=== PATIENT | male | born 1955 | race Caucasian/White ===

== ENCOUNTER 2024-05-10 08:05 | Inpatient (IN) | payer OTHER ==
[2024-05-09 16:20] LABS: BASOPHILS # (AUTO) 0.1 X10'3 (0-0.2); BASOPHILS % (AUTO) 1.2 % (0-1); EOSINOPHILS # (AUTO) 0.7 X10'3 (0-0.9); LYMPHOCYTES # (AUTO) 1.2 X10'3 (1.1-4.8); LYMPHOCYTES % (AUTO) 18.5 % (21-51); MEAN PLATELET VOLUME 7.7 FL (7.4-10.4); MONOCYTES # (AUTO) 0.5 X10'3 (0-0.9); MONOCYTES % (AUTO) 7.2 % (2-12); NEUTROPHILS # (AUTO) 4.3 X10'3 (1.8-7.7); NEUTROPHILS % (AUTO) 63.1 % (42-75); PRE OP HEMATOCRIT 40.2 % (42.0-52.0); PRE OP HEMOGLOBIN 13.7 g/dL (14.0-17.9); PRE OP PLATELET COUNT 159 X10'3 (140-440); PRE OP WHITE BLOOD COUNT 6.8 10'3 (4.8-10.8); RED BLOOD COUNT 4.14 X10'6 (4.70-6.10); RED CELL DISTRIBUTION WIDTH 14.9 % (11.5-14.5)
[2024-05-09 16:22] LABS: BILIRUBIN,URINE NEGATIVE (Neg); CLARITY,URINE CLEAR (Clear); COLOR,URINE YELLOW (Yellow); GLUCOSE, URINE NEGATIVE (Neg); KETONES,URINE NEGATIVE (Neg); LEUKOCYTE ESTERASE ,URINE NEGATIVE (Neg); NITRITES, URINE NEGATIVE (Neg); OCCULT BLOOD,URINE NEGATIVE (Neg); PROTEIN,URINE NEGATIVE (Neg); UROBILINOGEN,URINE 0.2 E.U/dL (0.2-1.0)
[2024-05-09 16:23] LABS: UA COLLECTION TYPE CLN CATCH MIDSTREAM
[2024-05-09 16:33] LABS: PRE OP PROTIME 15.2 SECONDS (9.0-12.0)
[2024-05-09 16:34] LABS: ALBUMIN 3.3 G/DL (3.4-5.0); ALKALINE PHOSPHATASE 94 IU/L (46-116); BLOOD UREA NITROGEN 16 MG/DL (7-18); BUN/CREATININE RATIO 15.8 (10.0-20.0); CALCIUM 8.7 MG/DL (8.5-10.1); CHLORIDE 105 MMOL/L (99-107); CREATININE 1.01 MG/DL (0.60-1.10); HEMOGLOBIN A1C 5.7 % (4.5-6.2); PRE OP ALT 54 U/L (30-65); PRE OP ANION GAP 7 (8-16); PRE OP AST 20 U/L (10-37); PRE OP BILIRUB, TOTAL 0.4 MG/DL (0.0-1.0); PRE OP GLUCOSE 137 MG/DL (70-104); PRE OP SODIUM 142 MMOL/L (135-145); TOTAL CARBON DIOXIDE 30.5 MMOL/L (24-32); TOTAL PROTEIN 6.5 G/DL (6.4-8.2); eGFR 73 ML/MIN
[2024-05-09 16:39] LABS: PRE OP INR 1.5 INR
[2024-05-09 16:49] LABS: PRE OP POTASSIUM 3.2 MMOL/L (3.4-5.1)
[2024-05-10] VITALS (29 sets, daily range): BP systolic 92–131; BP diastolic 48–79; PULSE 56–82; RESP 10–19; TEMP 97.4–98.4; O2SAT 91–100
[~2024-05-10] VITALS: Ht 167.6 cm; Wt 90.7 kg
[2024-05-10] MEDS: ceFAZolin 2gm in dextrose, iso 50 ML IV ONE (05:30)
[2024-05-10] MEDS: DOCUMENT DATE & TIME OF BETA-BLOCKER PO ONE (05:30)
[~2024-05-10 08:05] MED LIST: ALLO300T8 PO; AMI200T PO; CHOL10008 PO; CYAN-116 PO; FLO0.4C; HYDR50TA4 PO; LORA10TA7 PO; MAGN400C PO; METF-900 PO; METO-384 PO; OMEG-166 PO; POTA-366 PO; PRAV10TA39 PO; RIVA20TA PO; SEMA2PEN; TEST200V33 IM
[2024-05-10] MEDS: VANCOMYCIN 1,500MG inj. 1,500 MG in normal saline 500ml IV soln 300 ML IV ONE (09:22)
[2024-05-10] MEDS: ringers solution, lacted 1,000 ML IV SCH (09:22)
[2024-05-10] MEDS: famotidine 20mg tablet PO ONE (09:22)
[2024-05-10] MEDS ORDERED: meperidine/PF 25mg/ml syringe IV PRN ×3 (10:20)
[2024-05-10] MEDS ORDERED: morphine 4 MG/ML inj SYRINge IV PRN (10:20)
[2024-05-10] MEDS ORDERED: ondansetron/PF 4mg/2ml inj IV PRN ×2 (10:20→11:50)
[2024-05-10] MEDS ORDERED: proCHLORperazine 10 MG/2 ml inj IV PRN ×2 (10:20→11:50)
[2024-05-10] MEDS ORDERED: ringers solution, lacted 1,000 ML IV SCH (10:20)
[2024-05-10] MEDS ORDERED: morphine 2 MG/ML inj. syringe IV PRN (10:20)
[2024-05-10] MEDS ORDERED: esmolol inj. 0 ML IV ONE (10:34)
[2024-05-10] MEDS ORDERED: iohexol 350MG/ML 100ml bottle IV ONE ×2 (10:42→13:33)
[2024-05-10] MEDS ORDERED: sevoflurane 250ml liquid IH ONE (10:48)
[2024-05-10] MEDS ORDERED: midazolam 1 mg/ML 2ml injection ONE ×2 (10:50→13:32)
[2024-05-10] MEDS ORDERED: fentaNYL/PF 50MCG/1 ML 2ML syringe ONE ×2 (10:50→13:32)
[2024-05-10] MEDS ORDERED: propofol inj 20 ML IV ONE (11:14)
[2024-05-10] MEDS ORDERED: heparin 1,000unit/ml 10ml vial 10 ML ONE ×2 (11:14→13:32)
[2024-05-10] MEDS ORDERED: rocuronium 10mg/ml inj IV ONE (11:15)
[2024-05-10] MEDS ORDERED: METO50TA16 PO (11:19)
[2024-05-10] MEDS ORDERED: glycopyrrolate 0.2mg/ml inj ONE (11:38)
[2024-05-10] MEDS ORDERED: neostigmine methylsulfate 1 MG/ML 10ml vial ONE (11:38)
[2024-05-10] MEDS ORDERED: ALPRAZolam 0.25mg tablet PO PRN (11:50)
[2024-05-10] MEDS ORDERED: labetalol 20mg/4ml (5mg/ml) syringe IV PRN (11:50)
[2024-05-10] MEDS ORDERED: HYDROcodone/acetaminophen 5mg/325mg tablet PO PRN (11:50)
[2024-05-10] MEDS ORDERED: potassium Cl 20 mEq SR tablet PO PRN (11:50)
[2024-05-10] MEDS ORDERED: potassium Cl 20mEq/100mL bag 100 ML IV PRN (11:50)
[2024-05-10] MEDS ORDERED: acetaminophen 325mg tablet PO PRN (11:50)
[2024-05-10] MEDS ORDERED: potassium CL 10mEq/100ml bag 100 ML IV PRN (11:50)
[2024-05-10] MEDS ORDERED: pantoprazole 40mg Tablet.DR PO PRN (11:50)
[2024-05-10] MEDS ORDERED: dextrose 50%-water 50ml dispensing syringe IV PRN ×2 (11:50)
[2024-05-10] MEDS ORDERED: hydrALAZINE 20mg/ml inj. IV PRN (11:50)
[2024-05-10] MEDS ORDERED: magnesium sulf-water 4G/100mL 100 ML IV PRN (11:50)
[2024-05-10] MEDS ORDERED: magnesium sulf-water 2g/50mL 50 ML IV PRN (11:50)
[2024-05-10] MEDS ORDERED: diphenhydrAMINE 25mg capsule PO PRN (11:50)
[2024-05-10] MEDS ORDERED: potassium Cl 40MEQ/270ML bag 250 ML IV PRN (11:50)
[2024-05-10] MEDS ORDERED: glucagon, human recombinant 1mg kit SUBCUT PRN (11:50)
[2024-05-10] MEDS ORDERED: docusate sod 100mg capsule PO PRN (11:50)
[2024-05-10] MEDS ORDERED: DEXTROSE 15 GM of carb/4 tabs (each vial/BOTTLE has 4 tablets) PO PRN (11:50)
[2024-05-10] MEDS: INSULIN LISPRO 100 UNIT/ML INSULN.PEN MULTI-DOSE SQ SCH ×2 (12:00)
[2024-05-10] MEDS ORDERED: LIDOcaine 1% 30ml preserv. free vial ONE (13:32)
[2024-05-10] MEDS ORDERED: iohexol 350 MG/ML 50ML vial IV ONE (13:32)
[2024-05-10] MEDS ORDERED: verapamil 2.5 mg/ml inj IV ONE (13:32)
[2024-05-10] MEDS ORDERED: nitroGLYCERIN 500mcg/5mL D5W 5 ML IV ONE (13:33)
[2024-05-10] MEDS: normal saline 1000ml 1,000 ML IV SCH (15:18)
[2024-05-10 15:55] LABS: ALANINE AMINOTRANSFERASE 34 U/L (12-78); ALBUMIN 2.9 G/DL (3.4-5.0); ALKALINE PHOSPHATASE 71 IU/L (46-116); ASPARTATE AMINO TRANSFERASE 24 U/L (10-37); BILIRUBIN,DIRECT 0.2 MG/DL (0-0.3); BILIRUBIN,TOTAL 0.4 MG/DL (0.1-1.0); FREE T4 (FREE THYROXINE) 1.34 NG/DL (0.73-1.40); THYROID STIMULATING HORMONE 2.72 ulU/ml (0.34-4.50); TOTAL PROTEIN 5.8 G/DL (6.4-8.2)
[2024-05-10] MEDS: ceFAZolin/D5W- 1GM premix 50 ML IV SCH (16:05)
[2024-05-10] MEDS: sod chloride 0.9% 10ml flush syringe IV SCH (16:05)
[2024-05-10 16:12] LABS: ANION GAP 6 (8-16); BLOOD UREA NITROGEN 15 MG/DL (7-18); BUN/CREATININE RATIO 15.5 (10.0-20.0); CALCIUM 8.3 MG/DL (8.5-10.1); CHLORIDE 109 MMOL/L (99-107); CREATININE 0.97 MG/DL (0.60-1.10); GLUCOSE 91 MG/DL (70-104); POTASSIUM 3.3 MMOL/L (3.5-5.1); SODIUM 144 MMOL/L (135-145); TOTAL CARBON DIOXIDE 28.9 MMOL/L (24-32); eCRCL 66 ML/MIN; eGFR 77 ML/MIN
[2024-05-10] MEDS: potassium Cl 40MEQ/1/2NS 520ml 520 ML IV PRN (17:17)
[2024-05-10] MEDS: VANCOMYCIN 1GM 200ML H20 (PEG) 200 ML IV SCH (20:43)
[2024-05-10] MEDS: metoprolol tartrate 50mg tablet PO SCH (20:43)
[2024-05-10] MEDS: DEXTROSE 15 GM of carb/4 tabs (each vial/BOTTLE has 4 tablets) PO PRN (20:54)
[2024-05-11 02:00] VITALS: BP 115/68; PULSE 73; RESP 16; TEMP 98; O2SAT 98
[2024-05-11 06:53] VITALS: BP 111/70; PULSE 69; RESP 14; TEMP 97.6; O2SAT 93
[2024-05-11 07:37] LABS: BASOPHILS % (AUTO) 0.6 % (0-1); EOSINOPHILS # (AUTO) 0.4 X10'3 (0-0.9); EOSINOPHILS % (AUTO) 4.9 % (0-6); HEMATOCRIT 36.7 % (42.0-52.0); HEMOGLOBIN 12.3 g/dl (14.0-17.9); LYMPHOCYTES # (AUTO) 0.9 X10'3 (1.1-4.8); LYMPHOCYTES % (AUTO) 10.7 % (21-51); MEAN CORPUSCULAR HEMOGLOBIN 32.4 PG (27.0-31.0); MEAN CORPUSCULAR HGB CONC 33.5 g/dL (33.0-36.5); MEAN CORPUSCULAR VOLUME 96.5 FL (78-98); MEAN PLATELET VOLUME 7.5 FL (7.4-10.4); MONOCYTES # (AUTO) 0.6 X10'3 (0-0.9); MONOCYTES % (AUTO) 7.4 % (2-12); NEUTROPHILS # (AUTO) 6.2 X10'3 (1.8-7.7); NEUTROPHILS % (AUTO) 76.4 % (42-75); PLATELET COUNT 131 X10'3 (140-440); RED BLOOD COUNT 3.81 X10'6 (4.70-6.10); RED CELL DISTRIBUTION WIDTH 15.1 % (11.5-14.5); WHITE BLOOD COUNT 8.1 X10'3 (4.5-11.0)
[2024-05-11 07:44] LABS: INR 1.1 INR; PROTHROMBIN TIME 11.9 SECONDS (9.0-12.0)
[2024-05-11] MEDS: rivaroxaban 20mg tablet PO SCH (08:05)
[2024-05-11] MEDS: allopurinol 300 MG tablet PO SCH (08:05)
[2024-05-11] MEDS: loratadine 10mg tablet PO SCH (08:05)
[2024-05-11] MEDS: magnesium oxide 400mg tablet PO SCH (08:05)
[2024-05-11 08:06] VITALS: BP_SYST 111; PULSE 69
[2024-05-11] MEDS: OMEGA-3/DHA/EPA/FISH OIL 1 EACH CAPSULE.DR PO SCH (08:06)
[2024-05-11] MEDS: cholecalciferol (vitamin D3) 1,000 unit (25mcg) tablet PO SCH (08:06)
[2024-05-11] MEDS: amiodarone 200mg tablet PO SCH (08:06)
[2024-05-11] MEDS: HYDROchlorothiazide 25mg tablet PO SCH (08:06)
[2024-05-11 08:16] LABS: ALANINE AMINOTRANSFERASE 27 U/L (12-78); ALBUMIN 2.8 G/DL (3.4-5.0); ALBUMIN/GLOBULIN RATIO 0.9 (1.1-1.5); ALKALINE PHOSPHATASE 66 IU/L (46-116); ANION GAP 4 (8-16); ASPARTATE AMINO TRANSFERASE 18 U/L (10-37); BILIRUBIN,TOTAL 0.6 MG/DL (0.1-1.0); BLOOD UREA NITROGEN 11 MG/DL (7-18); BUN/CREATININE RATIO 10.2 (10.0-20.0); CALCIUM 8.4 MG/DL (8.5-10.1); CHLORIDE 108 MMOL/L (99-107); CREATININE 1.08 MG/DL (0.60-1.10); GLUCOSE 93 MG/DL (70-104); MAGNESIUM 1.8 MG/DL (1.5-2.4); POTASSIUM 4.2 MMOL/L (3.5-5.1); PRO BRAIN NATRIURETIC PEPTIDE 428 PG/ML (0-125); SODIUM 142 MMOL/L (135-145); TOTAL CARBON DIOXIDE 30.2 MMOL/L (24-32); TOTAL PROTEIN 5.8 G/DL (6.4-8.2); eCRCL 59 ML/MIN; eGFR 68 ML/MIN
[2024-05-11 08:30] VITALS: RESP 14; O2SAT 93
[2024-05-11] MEDS: pravastatin 10mg tablet PO SCH (08:48)
== END 2024-05-11 11:50 | disposition home or self-care (01) | DRG 274 ==
LOC: PAS IN 08:05 → PCU 3S 14:43
PROVIDERS: ADMIT Student in an Organized Health Care Education/Training Program; ATTEND Student in an Organized Health Care Education/Training Program
PROC: B24BZZ4 Ultrasonography of Heart with Aorta, Transesophageal (ICD-10-PCS; 2024-05-10)
PROC: 02L73DK Occlusion of Left Atrial Appendage with Intraluminal Device, Percutaneous Approach (ICD-10-PCS; principal; 2024-05-10 10:48)
DX: I48.91 Unspecified atrial fibrillation (principal); Z00.6 Encounter for examination for normal comparison and control in clinical research program; I10 Essential (primary) hypertension; E11.9 Type 2 diabetes mellitus without complications; E78.5 Hyperlipidemia, unspecified; Z88.6 Allergy status to analgesic agent
CPT/HCPCS: 33340; 36415; 71045; 71046; 76937; 80048; 80053; 80076; 81003; 82948; 83036; 83735; 83880; 84439; 84443; 85025; 85347; 85610; 85730; 86885; 86900; 86901; 86920; 87081; 93005; 93308; 93312; 93325; A4615; A4618; A6258; A6449; C1760; C1889; C1893; G0378; J0690; J1644; J1815; J2003; J2250; J2704; J2710; J3010; J3370; J3372; J3480; J3490; J7030; J7040; J7120; Q9967

== ENCOUNTER 2024-06-25 10:50 | Day surgery (SDC) | payer OTHER ==
[~2024-06-25] VITALS: Ht 167.6 cm; Wt 88.3 kg
[2024-06-25] VITALS (16 sets, daily range): BP systolic 101–116; BP diastolic 55–70; PULSE 69–91; RESP 11–20; TEMP 98.2; O2SAT 94–98
[~2024-06-25 10:50] MED LIST changes: -CYAN-116 PO; -METO-384 PO; +METO50TA16 PO
[2024-06-25 11:44] LABS: BASOPHILS # (AUTO) 0.1 X10'3 (0-0.2); BASOPHILS % (AUTO) 0.8 % (0-1); EOSINOPHILS # (AUTO) 0.4 X10'3 (0-0.9); EOSINOPHILS % (AUTO) 5.7 % (0-6); HEMATOCRIT 36.1 % (42.0-52.0); HEMOGLOBIN 12.3 g/dl (14.0-17.9); LYMPHOCYTES # (AUTO) 0.9 X10'3 (1.1-4.8); LYMPHOCYTES % (AUTO) 13.4 % (21-51); MEAN CORPUSCULAR HEMOGLOBIN 31.9 PG (27.0-31.0); MEAN CORPUSCULAR HGB CONC 33.9 g/dL (33.0-36.5); MEAN CORPUSCULAR VOLUME 93.9 FL (78-98); MEAN PLATELET VOLUME 7.2 FL (7.4-10.4); MONOCYTES # (AUTO) 0.6 X10'3 (0-0.9); NEUTROPHILS # (AUTO) 5.1 X10'3 (1.8-7.7); NEUTROPHILS % (AUTO) 72.1 % (42-75); PLATELET COUNT 167 X10'3 (140-440); RED BLOOD COUNT 3.85 X10'6 (4.70-6.10); RED CELL DISTRIBUTION WIDTH 13.6 % (11.5-14.5)
[2024-06-25 11:51] LABS: CHLORIDE 105 MMOL/L (99-107); GLUCOSE 88 MG/DL (70-104); POTASSIUM 3.6 MMOL/L (3.5-5.1); SODIUM 140 MMOL/L (135-145); TOTAL CARBON DIOXIDE 28.6 MMOL/L (24-32)
[2024-06-25 11:52] LABS: ALBUMIN 3.1 G/DL (3.4-5.0); ANION GAP 6 (8-16); BLOOD UREA NITROGEN 23 MG/DL (7-18); BUN/CREATININE RATIO 24.2 (10.0-20.0); CALCIUM 8.7 MG/DL (8.5-10.1); CREATININE 0.95 MG/DL (0.60-1.10); eCRCL 66 ML/MIN; eGFR 79 ML/MIN
[2024-06-25] MEDS ORDERED: HYDR25TA5 PO (12:02)
[2024-06-25 12:12] LABS: APTT 34 SECONDS (22-32); INR 1.4 INR; PROTHROMBIN TIME 14.6 SECONDS (9.0-12.0)
[2024-06-25] MEDS: fentaNYL/PF 50MCG/1 ML 2ML syringe IV ONE (13:23)
[2024-06-25] MEDS: MIDAZolam 1mg/ml 10ml vial IV ONE (13:24)
[2024-06-25] MEDS: normal saline 1000ml 1,000 ML IV SCH (13:24)
[2024-06-25] MEDS ORDERED: CLOP75TA34 PO (14:00)
[2024-06-25] MEDS ORDERED: ASPI-1265 PO (14:00)
== END 2024-06-25 14:35 | disposition home or self-care (01) ==
LOC: SSTAY O 10:50 → EDSTATUS 13:30 → SSTAY O 14:35
PROVIDERS: ATTEND Student in an Organized Health Care Education/Training Program
DX: I48.91 Unspecified atrial fibrillation (principal); I10 Essential (primary) hypertension; E11.9 Type 2 diabetes mellitus without complications; Z87.442 Personal history of urinary calculi; Z98.890 Other specified postprocedural states
CPT/HCPCS: 36415; 80048; 85025; 85610; 85730; 93312; 93325; J2250; J3010; J7030